=== PATIENT | male | born 1980 | race Two or more races ===

== ENCOUNTER 2020-06-12 18:04 | Emergency (ER) | payer OTHER ==
[~2020-06-12] VITALS: Ht 177.8 cm; Wt 80.7 kg
[2020-06-12 18:16] VITALS: BP 136/86
[2020-06-12] MEDS ORDERED: IBUPROFEN 800 MG TAB PO ONE (19:00)
[2020-06-12] MEDS ORDERED: CLINDAMYCIN HCL 150 MG CAP PO ONE (19:00)
== END 2020-06-12 19:57 | disposition home or self-care (01) ==
LOC: ER 18:04
DX: K04.7 Periapical abscess without sinus (principal); K03.81 Cracked tooth; H66.91 Otitis media, unspecified, right ear

== ENCOUNTER 2020-06-26 19:24 | Emergency (ER) | payer OTHER ==
[~2020-06-26] VITALS: Ht 177.8 cm; Wt 80.7 kg
[2020-06-26 19:51] VITALS: BP 117/73
[2020-06-26] MEDS ORDERED: cefTRIAXone SOD 1,000 MG VL IM ONE (21:45)
== END 2020-06-26 22:23 | disposition home or self-care (01) ==
LOC: ER 19:24
DX: S02.5XXB Fracture of tooth (traumatic), initial encounter for open fracture (principal); H66.91 Otitis media, unspecified, right ear; M48.02 Spinal stenosis, cervical region; F12.10 Cannabis abuse, uncomplicated; Z71.51 Drug abuse counseling and surveillance of drug abuser; X58.XXXA Exposure to other specified factors, initial encounter; Y93.89 Activity, other specified; Y92.89 Other specified places as the place of occurrence of the external cause; Y99.8 Other external cause status
CPT/HCPCS: 70450; 70486; 72125; 96372; 99285; J0696

== ENCOUNTER 2020-06-30 05:05 | Inpatient (IN) | payer OTHER ==
[~2020-06-30] VITALS: Ht 172.7 cm; Wt 75.7 kg
[2020-06-30] MEDS ORDERED: KETOROLAC TROMETH 60MG/2ML VIAL IM ONE (05:30)
[2020-06-30] MEDS ORDERED: SODIUM CHLORIDE 0.9% 1,000 ML IV ONE (08:00)
[2020-06-30 08:43] LABS: Red Blood Cells 2.57 10^6/uL (4.5-5.90)
[2020-06-30 08:46] LABS: Hematocrit 23.2 % (41.0-53.0); Mean Corpuscular Hemoglobin 27.2 pg (28.0-32.0); Mean Corpuscular Hgb Conc. 30.1 g/dL (32.0-36.0); Mean Corpuscular Volume 90.3 fL (80.0-100.0); Platelet Count (auto) 184 10^3/uL (140-450); Red Cell Distribution Width 19.6 % (11.8-14.3)
[2020-06-30 08:53] LABS: Albumin 3.6 g/dL (3.4-5.0); BUN/Creatinine Ratio 8.2; Bilirubin, Total 0.4 mg/dL (0.2-1.0); CRP High Sensitivity 5.35 mg/dL (< 0.3); Calcium 9.3 mg/dL (8.5-10.1); Total Protein 7.8 g/dL (6.4-8.2)
[2020-06-30 09:12] LABS: White Blood Cell 424.4 10^3/uL (4.4-10.8)
[2020-06-30 09:16] LABS: Basophils % (manual) 0 (0.0-2.0); Metamyelocytes % 0; Myelocytes % 0; Promyelocytes % 0; Reactive Lymphocytes 0
[2020-06-30] MEDS ORDERED: POTASSIUM EFFERVESENT TAB 25 MEQ PO ONE (09:30)
[2020-06-30] MEDS ORDERED: FERROUS SULFATE 325 MG TAB PO ONE (09:30)
[2020-06-30 09:44] LABS: Band Neutrophils % (manual) 3; Blast Cells 47; Eosinophils % (manual) 2 (0-7); Lymphocytes % (manual) 14 (10.0-50.0); Monocytes % (manual) 2 (0-12)
[2020-06-30] MEDS ORDERED: LORazepam 0.5 MG TAB PO PRN (09:45)
[2020-06-30] MEDS ORDERED: ALUM & MAG HYDROX-SIMETH LIQ(MAALOX) 30 ML PO PRN (09:45)
[2020-06-30] MEDS ORDERED: ACETAMINOPHEN 325 MG TAB PO PRN (09:45)
[2020-06-30] MEDS ORDERED: DOCUSATE SOD 100 MG CAP PO PRN (09:45)
[2020-06-30] MEDS: SOD CHL 0.9%/ KCL 20MEQ 1,000 ML IV SCH ×2 (09:45→18:09)
[2020-06-30] MEDS ORDERED: LACTATED RINGER'S 1,000 ML IV ONE (09:45)
[2020-06-30] MEDS ORDERED: DOXYCYCLINE 100MG/250ML 250 ML IV ONE ×2 (09:45→10:07)
[2020-06-30] MEDS ORDERED: HYDROcodone-ACET 5/325MG TAB PO PRN (09:45)
[2020-06-30] MEDS ORDERED: MORPHINE SULF INJ 2 MG/ML SYRINGE 1ML IV PRN ×2 (09:45)
[2020-06-30] MEDS ORDERED: ONDANSETRON HCL 4 MG/2 ML VIAL IV PRN (09:45)
[2020-06-30] MEDS ORDERED: NITROGLYCERIN 0.4 MG SL TAB SL PRN (09:45)
[2020-06-30] MEDS ORDERED: methylPREDNISolone SOD SUCC 125 MG/2 ML VL IV ONE (09:45)
[2020-06-30] MEDS ORDERED: POTASSIUM CHL 20MEQ/100ML 100 ML IV ONE (09:45)
[2020-06-30 09:58] LABS: Basophils % (manual) 0 (0.0-2.0); Promyelocytes % 0; Reactive Lymphocytes 0
[2020-06-30] MEDS ORDERED: SUCRALFATE 1 GM TAB PO ONE (10:00)
[2020-06-30] MEDS ORDERED: ENOXAPARIN SOD 40 MG/0.4 ML SYRINGE SC SCH (10:00)
[2020-06-30] MEDS ORDERED: FAMOTIDINE 20 MG TAB PO SCH (10:00)
[2020-06-30] MEDS ORDERED: PANTOPRAZOLE 40 MG/10 ML VIAL INJ IV ONE ×2 (10:00→10:10)
[2020-06-30] MEDS ORDERED: POTASSIUM CHLORIDE 20 MEQ, LIDOCAINE 1% (LOCAL ANESTH.) 2 ML in SODIUM CHL 0.9% 100 ML IV ONE (10:00)
[2020-06-30 10:26] LABS: Cholesterol 74 mg/dL (< 200); HDL Cholesterol 13 mg/dL (40-59); LDL Cholesterol 36 mg/dL (< 100); Triglycerides 170 mg/dL (< 150)
[2020-06-30] MEDS ORDERED: hydrALAZINE HCL 20 MG/ML VL IV PRN (11:45)
[2020-06-30 12:27] LABS: Band Neutrophils % (manual) 13; Eosinophils % (manual) 2 (0-7); Lymphocytes % (manual) 3 (10.0-50.0); Metamyelocytes % 9; Monocytes % (manual) 1 (0-12); Myelocytes % 13; Platelet Count (auto) 181 10^3/uL (140-450)
[2020-06-30 12:28] LABS: Blast Cells 25
[2020-06-30] MEDS ORDERED: hydroxyUREA 500 MG CAP PO ONE (12:45)
[2020-06-30] MEDS ORDERED: SUCRALFATE 1 GM TAB PO SCH (17:00)
[2020-06-30 18:32] VITALS: BP 109/64
[2020-06-30] MEDS ORDERED: PANTOPRAZOLE 40 MG TAB PO SCH (22:00)
[2020-06-30] MEDS ORDERED: DOXYCYCLINE 100MG/250ML 250 ML IV SCH (22:00)
[2020-07-01] MEDS ORDERED: ALLOPURINOL 300 MG TAB PO SCH (10:00)
== END 2020-06-30 18:30 | disposition short-term general hospital (02) | DRG 690 ==
LOC: ER 05:05 → TELE 05:06
PROVIDERS: ADMIT Hospitalist; ATTEND Hospitalist
DX: C95.00 Acute leukemia of unspecified cell type not having achieved remission (principal); C92.10 Chronic myeloid leukemia, BCR/ABL-positive, not having achieved remission; E87.6 Hypokalemia; F12.10 Cannabis abuse, uncomplicated; F17.210 Nicotine dependence, cigarettes, uncomplicated; I10 Essential (primary) hypertension; K21.9 Gastro-esophageal reflux disease without esophagitis; K29.70 Gastritis, unspecified, without bleeding; E86.0 Dehydration; M54.5 Low back pain; R16.1 Splenomegaly, not elsewhere classified; Z80.1 Family history of malignant neoplasm of trachea, bronchus and lung; Z20.828 Contact with and (suspected) exposure to other viral communicable diseases; D64.9 Anemia, unspecified
CPT/HCPCS: 36415; 70450; 71045; 74176; 80053; 80061; 82728; 83036; 83605; 83615; 83690; 84484; 85007; 85027; 85060; 85379; 86141; 87040; 96365; 96366; 96367; 96368; 96372; 96375; C9113; G0378; J1885; J2001; J3490

== ENCOUNTER 2024-03-15 20:51 | Inpatient (IN) | payer MEDICAID, OTHER ==
[~2024-03-15] VITALS: Ht 175.3 cm; Wt 71.6 kg
[2024-03-15 21:39] LABS: Basophils # (auto) 0 10 ^3/uL (0-0.2); Basophils % (auto) 0.4 % (0.0-2.0); Eosinophils # (auto) 0 10 ^3/uL (0-0.8); Eosinophils % (auto) 0.1 % (0.0-7.0); Hematocrit 37.3 % (41.0-53.0); Hemoglobin 12.1 g/dL (13.5-17.5); Lymphocytes # (auto) 1.6 10 ^3/uL (0.4-5.4); Lymphocytes % (auto) 17.5 % (10.0-50.0); Mean Corpuscular Hemoglobin 28.5 pg (28.0-32.0); Mean Corpuscular Hgb Conc. 32.3 g/dL (32.0-36.0); Mean Corpuscular Volume 88.1 fL (80.0-100.0); Monocytes # (auto) 0.2 10 ^3/uL (0-1.3); Monocytes % (auto) 2.5 % (0.0-12.0); Neutrophils # (auto) 7.1 10 ^3/uL (1.6-8.6); Neutrophils % (auto) 79.5 % (37.0-80.0); Nucleated Red Blood Cells % 0.7 %; Red Blood Cells 4.24 10^6/uL (4.5-5.90); White Blood Cell 8.9 10^3/uL (4.4-10.8)
[2024-03-15 21:40] LABS: Red Cell Distribution Width 21.2 % (11.8-14.3)
[2024-03-15 21:46] LABS: Chloride 95 mmol/L (98-107); Potassium 3.7 mmol/L (3.5-5.1); Sodium 126 mmol/L (136-145)
[2024-03-15 21:47] LABS: Anion Gap 10 (5-15); Carbon Dioxide 21 mmol/L (20-30)
[2024-03-15 21:48] LABS: Calcium 8.8 mg/dL (8.5-10.1)
[2024-03-15 21:52] LABS: Glucose 251 mg/dL (74-106)
[2024-03-15 21:53] LABS: BUN/Creatinine Ratio 8.8 (10.0-20.0); Blood Urea Nitrogen 9 mg/dL (9-23)
[2024-03-15 22:27] LABS: Anisocytosis Slight; Large Platelets FEW; Platelet Estimate Decreased
[2024-03-15 22:29] LABS: Lactic Acid w/Reflex 4.5 mmol/L (0.4-2.0)
[2024-03-15 23:33] VITALS: PULSE 104; RESP 44; O2SAT 94
[2024-03-16] VITALS (11 sets, daily range): BP systolic 96–101; BP diastolic 61–69; PULSE 64–105; RESP 18–46; TEMP 97.8–98; O2SAT 94–96
[2024-03-16 00:16] LABS: Rapid Influenza A Negative (Negative)
[2024-03-16 00:18] LABS: COVID19 ANTIGEN SOFIA FIA NEGATIVE (NEGATIVE); Rapid Influenza B Positive (Negative)
[2024-03-16] MEDS: VANCOMYCIN 1GM/200ML 200 ML IV ONE (00:52)
[2024-03-16] MEDS: cefTRIAXone 1GM/50ML D5W 50 ML IV ONE (00:53)
[2024-03-16] MEDS: SODIUM CHLORIDE 0.9% 1,000 ML IV ONE (00:53)
[2024-03-16] MEDS: SODIUM CHLORIDE 0.9% 1,000 ML IV SCH (02:00)
[2024-03-16] MEDS ORDERED: ACETAMINOPHEN 325 MG TAB PO PRN (02:00)
[2024-03-16] MEDS ORDERED: IPRATROPIUM BROM 0.5 MG/2.5ML INH SOL NEB PRN (02:00)
[2024-03-16] MEDS ORDERED: HYDROcodone-ACET 5/325MG TAB PO PRN (02:00)
[2024-03-16] MEDS ORDERED: ALBUTEROL SULF 2.5 MG/0.5ML(0.5%) NEB SOLN NEB PRN (02:00)
[2024-03-16] MEDS ORDERED: DOCUSATE SOD 100 MG CAP PO PRN (02:00)
[2024-03-16] MEDS ORDERED: DEXTROSE (50%) 50ML SYRG IV PRN ×2 (02:00→16:30)
[2024-03-16] MEDS ORDERED: ONDANSETRON HCL 4 MG/2 ML VIAL IV PRN (02:00)
[2024-03-16] MEDS: methylPREDNISolone SOD SUCC 125 MG/2 ML VL IV ONE (02:56)
[2024-03-16] MEDS: AZITHROMYCIN 500MG/ 250ML 250 ML IV ONE (02:56)
[2024-03-16] MEDS ORDERED: NITROGLYCERIN 0.4 MG SL TAB SL PRN (04:15)
[2024-03-16] MEDS ORDERED: MORPHINE SULFATE INJ 2 MG/ml SYRG IV PRN (04:15)
[2024-03-16 05:34] LABS: Basophils # (auto) 0 10 ^3/uL (0-0.2); Eosinophils # (auto) 0 10 ^3/uL (0-0.8)
[2024-03-16 05:38] LABS: Alanine Aminotransferase 49 U/L (7-40); Albumin 3.1 g/dL (3.2-4.8); Alkaline Phosphatase 161 U/L (46-116); Anion Gap 11 (5-15); Aspartate Aminotransferase 92 U/L (13-40); BUN/Creatinine Ratio 13.3 (10.0-20.0); Blood Urea Nitrogen 11 mg/dL (9-23); Calcium 8.5 mg/dL (8.7-10.4); Carbon Dioxide 20 mmol/L (20-30); Chloride 95 mmol/L (98-107); Glucose 313 mg/dL (74-106); Potassium 3.5 mmol/L (3.5-5.1); Sodium 126 mmol/L (136-145)
[2024-03-16 05:39] LABS: Basophils % (auto) 0.1 % (0.0-2.0); Hematocrit 32.8 % (41.0-53.0); Lymphocytes # (auto) 1.1 10 ^3/uL (0.4-5.4); Lymphocytes % (auto) 12.1 % (10.0-50.0); Mean Corpuscular Hemoglobin 29.4 pg (28.0-32.0); Mean Corpuscular Hgb Conc. 33.5 g/dL (32.0-36.0); Mean Corpuscular Volume 87.8 fL (80.0-100.0); Monocytes # (auto) 0.1 10 ^3/uL (0-1.3); Monocytes % (auto) 0.9 % (0.0-12.0); Neutrophils # (auto) 7.8 10 ^3/uL (1.6-8.6); Neutrophils % (auto) 86.9 % (37.0-80.0); Nucleated Red Blood Cells % 0.4 %; Red Blood Cells 3.73 10^6/uL (4.5-5.90); Total Protein 7.4 g/dL (5.7-8.2); White Blood Cell 8.9 10^3/uL (4.4-10.8)
[2024-03-16 05:41] LABS: Red Cell Distribution Width 20.9 % (11.8-14.3)
[2024-03-16] MEDS: methylPREDNISolone SOD SUCC 40 MG/ML VL IV SCH ×2 (06:17→22:11)
[2024-03-16 06:40] LABS: Base Excess -0.5 mmol/L (-2.0-2.0)
[2024-03-16] MEDS: InsuLIN REG 1unit/0.01ml Soln (100units/ml) SC SCH ×3 (06:55→22:13)
[2024-03-16] MEDS: ACCU-CHEK COMFORT CURVE STRIP VI SCH ×2 (06:55→17:45)
[2024-03-16] MEDS: IOHEXOL 350 MG/ML 100ML IJ ONE (09:47)
[2024-03-16 09:49] LABS: Phosphorus 2.5 mg/dL (2.4-5.1)
[2024-03-16] MEDS ORDERED: ENOXAPARIN SOD 40 MG/0.4 ML SYRINGE SC SCH (10:00)
[2024-03-16] MEDS ORDERED: TACROLIMUS 0.5 MG CAP PO SCH (10:00)
[2024-03-16 10:24] LABS: INR 1.13 (0.9-1.15); Prothrombin Time 11.9 sec (9.3-11.8)
[2024-03-16 10:34] LABS: Magnesium 1.5 mg/dL (1.6-2.6)
[2024-03-16 10:44] LABS: Lactic Acid w/Reflex 3.8 mmol/L (0.4-2.0)
[2024-03-16] MEDS: OSELTAMIVIR 75 MG CAP PO SCH (10:54)
[2024-03-16] MEDS: LEVALBUTEROL HCL 1.25 MG/3 ML NEB NEB SCH (12:16)
[2024-03-16] MEDS: IPRATROPIUM BROM 0.5 MG/2.5ML INH SOL NEB SCH (12:17)
[2024-03-16] MEDS: SODIUM CHLORIDE 0.9% 500 ML IV ONE (12:23)
[2024-03-16 12:53] LABS: % Iron Saturation 8.6 % (20-55)
[2024-03-16 15:17] LABS: Urine Bacteria None Seen /hpf (None Seen)
[2024-03-16 15:36] LABS: Urine Blood TRACE /uL (Negative); Urine Clarity Clear (Clear); Urine Color Yellow (Yellow); Urine Protein, UAD TRACE (Negative); Urine Specific Gravity 1.044 (1.001-1.035); Urine Urobilinogen 4 mg/dL (Negative); Urine WBC <1 /hpf (0 - 3); Urine pH 6.5 (5.0-9.0)
[2024-03-16 15:42] LABS: Amphetamine Screen, Urine Neg (NEGATIVE); Barbiturate Scree,Urine Neg (NEGATIVE); Benzodiazephine Screen, Urine Neg (NEGATIVE); Cannabinoid Screen, Urine Pos (NEGATIVE); Cocaine Screen, Urine Neg (NEGATIVE); Opiate Scree,Urine Neg (NEGATIVE); Phencyclidine Screen, Urine Neg (NEGATIVE)
[2024-03-16] MEDS ORDERED: FENO145T27 PO (15:58)
[2024-03-16] MEDS ORDERED: ACYC200C22 PO (15:58)
[2024-03-16] MEDS ORDERED: POSA100T4 PO (15:58)
[2024-03-16] MEDS ORDERED: BACDST PO (15:58)
[2024-03-16] MEDS ORDERED: FLUT1SPR5 (15:58)
[2024-03-16] MEDS ORDERED: TACR0.5C3 PO (15:58)
[2024-03-16] MEDS ORDERED: URSO300C2 PO (15:58)
[2024-03-16] MEDS ORDERED: ZOFR4T PO (15:58)
[2024-03-16] MEDS ORDERED: SUMA50TA16 PO (15:58)
[2024-03-16] MEDS ORDERED: CLOB0.055 TOP (15:58)
[2024-03-16] MEDS ORDERED: BENZ100C97 PO (15:58)
[2024-03-16] MEDS ORDERED: CYCL-839 PO (15:58)
[2024-03-16] MEDS ORDERED: PROC10TA6 PO (15:58)
[2024-03-16] MEDS ORDERED: METF-370 PO (15:58)
[2024-03-16] MEDS ORDERED: TRIA0.1O TOP (15:58)
[2024-03-16] MEDS: LACTULOSE 20Gm/30ML SOLN PO ONE (16:45)
[2024-03-16 17:22] LABS: Sodium Urine < 10 mmol/L (40-220)
[2024-03-16 17:26] LABS: Protein, Urine 39.3 mg/dL (0.0-11.9); Protein, Urine 41.5 mg/dL (0.0-11.9)
[2024-03-16 17:29] LABS: Creatinine, Urine 51.14 mg/dL (30.0-125.0); Creatinine, Urine 52.39 mg/dL (30.0-125.0); Urine Protein/Creatinine Ratio 0.75
[2024-03-16] MEDS: DOXYCYCLINE 100MG/250ML 250 ML IV SCH (17:45)
[2024-03-16] MEDS: SULFAMETHOX W/TRIMETH(800/160MG) DS TAB PO ONE (17:45)
[2024-03-16 18:46] LABS: Lactic Acid w/Reflex 3.2 mmol/L (0.4-2.0)
[2024-03-16 21:13] LABS: Basophils # (auto) 0 10 ^3/uL (0-0.2); Eosinophils # (auto) 0 10 ^3/uL (0-0.8); Lymphocytes # (auto) 0.7 10 ^3/uL (0.4-5.4); Mean Corpuscular Hemoglobin 28.5 pg (28.0-32.0); White Blood Cell 13.9 10^3/uL (4.4-10.8)
[2024-03-16 21:15] LABS: Basophils % (auto) 0.1 % (0.0-2.0); Hematocrit 30.4 % (41.0-53.0); Hemoglobin 9.9 g/dL (13.5-17.5); Lymphocytes % (auto) 5.1 % (10.0-50.0); Mean Corpuscular Hgb Conc. 32.7 g/dL (32.0-36.0); Mean Corpuscular Volume 87.2 fL (80.0-100.0); Monocytes # (auto) 0.5 10 ^3/uL (0-1.3); Monocytes % (auto) 3.4 % (0.0-12.0); Neutrophils # (auto) 12.7 10 ^3/uL (1.6-8.6); Neutrophils % (auto) 91.4 % (37.0-80.0); Nucleated Red Blood Cells % 1.3 %; Red Blood Cells 3.49 10^6/uL (4.5-5.90)
[2024-03-16 21:20] LABS: Red Cell Distribution Width 20.3 % (11.8-14.3)
[2024-03-16 21:22] LABS: Alanine Aminotransferase 34 U/L (7-40); Albumin 3.1 g/dL (3.2-4.8); Alkaline Phosphatase 140 U/L (46-116); Anion Gap 8 (5-15); Aspartate Aminotransferase 69 U/L (13-40); BUN/Creatinine Ratio 14.7 (10.0-20.0); Blood Urea Nitrogen 11 mg/dL (9-23); Calcium 8.7 mg/dL (8.5-10.1); Carbon Dioxide 22 mmol/L (20-30); Chloride 101 mmol/L (98-107); Glucose 331 mg/dL (74-106); Potassium 3.4 mmol/L (3.5-5.1); Total Protein 7.2 g/dL (5.7-8.2)
[2024-03-16 21:35] LABS: Sodium 131 mmol/L (136-145)
[2024-03-16 21:46] LABS: Giant Platelets Few; Platelet Estimate Decreased
[2024-03-16 21:47] LABS: Stomatocytes Few; Target Cell FEW
[2024-03-16] MEDS ORDERED: InsuLIN REG 1unit/0.01ml Soln (100units/ml) SC SCH (22:00)
[2024-03-16] MEDS: cefTRIAXone 1GM/50ML D5W 50 ML IV SCH (22:12)
[2024-03-16] MEDS: TACROLIMUS 0.5 MG CAP PO SCH (22:13)
[2024-03-17] VITALS (16 sets, daily range): BP systolic 90–105; BP diastolic 59–68; PULSE 77–89; RESP 18–20; TEMP 97.1–98.9; O2SAT 93–98
[2024-03-17] MEDS ORDERED: AZITHROMYCIN 500MG/ 250ML 250 ML IV SCH (03:00)
[2024-03-17 06:00] LABS: Alanine Aminotransferase 36 U/L (7-40); Alkaline Phosphatase 134 U/L (46-116); Anion Gap 7 (5-15); Aspartate Aminotransferase 54 U/L (13-40); Bilirubin, Total 0.9 mg/dL (0.2-1.0); Blood Urea Nitrogen 11 mg/dL (9-23); Calcium 9.1 mg/dL (8.7-10.4); Carbon Dioxide 24 mmol/L (20-30); Chloride 104 mmol/L (98-107); Glucose 243 mg/dL (74-106); Magnesium 2.1 mg/dL (1.6-2.6); Potassium 3.5 mmol/L (3.5-5.1); Sodium 135 mmol/L (136-145); Total Protein 7.1 g/dL (5.7-8.2)
[2024-03-17 06:02] LABS: Basophils # (auto) 0 10 ^3/uL (0-0.2); Eosinophils # (auto) 0 10 ^3/uL (0-0.8); Mean Corpuscular Hemoglobin 29.1 pg (28.0-32.0); Monocytes # (auto) 0.5 10 ^3/uL (0-1.3)
[2024-03-17 06:06] LABS: Hematocrit 29.2 % (41.0-53.0); Hemoglobin 9.5 g/dL (13.5-17.5); Lymphocytes # (auto) 1.1 10 ^3/uL (0.4-5.4); Mean Corpuscular Hgb Conc. 32.6 g/dL (32.0-36.0); Mean Corpuscular Volume 89.3 fL (80.0-100.0); Monocytes % (auto) 3.9 % (0.0-12.0); Neutrophils # (auto) 11.9 10 ^3/uL (1.6-8.6); Neutrophils % (auto) 88.1 % (37.0-80.0); Nucleated Red Blood Cells % 0.9 %; Red Blood Cells 3.27 10^6/uL (4.5-5.90); White Blood Cell 13.5 10^3/uL (4.4-10.8)
[2024-03-17 06:12] LABS: Red Cell Distribution Width 20.5 % (11.8-14.3)
[2024-03-17 06:28] LABS: Phosphorus 2.3 mg/dL (2.4-5.1)
[2024-03-17 07:48] LABS: CRP High Sensitivity 13.71 mg/dL (<1.0)
[2024-03-17 08:04] LABS: Platelet Estimate Decreased
[2024-03-17 08:05] LABS: Anisocytosis Slight
[2024-03-17 09:32] LABS: Base Excess -0.3 mmol/L (-2.0-2.0)
[2024-03-17] MEDS: LACTULOSE 20Gm/30ML SOLN PO SCH (10:00)
[2024-03-17] MEDS: SULFAMETHOX W/TRIMETH(800/160MG) DS TAB PO SCH (11:05)
[2024-03-17] MEDS: POTASSIUM PHOSPHATE 22 MEQ in SODIUM CHL 0.9% 100 ML IV ONE (20:19)
[2024-03-18] VITALS (9 sets, daily range): BP systolic 95–105; BP diastolic 68–72; PULSE 61–98; RESP 16–20; TEMP 97.3–98.9; O2SAT 93–99
[2024-03-18] MEDS: MELATONIN 5 MG TAB PO ONE (01:00)
[2024-03-18 06:14] LABS: Basophils # (auto) 0 10 ^3/uL (0-0.2); Eosinophils # (auto) 0 10 ^3/uL (0-0.8)
[2024-03-18 06:16] LABS: Basophils % (auto) 0.2 % (0.0-2.0); Hematocrit 28.1 % (41.0-53.0); Hemoglobin 9.3 g/dL (13.5-17.5); Lymphocytes # (auto) 0.8 10 ^3/uL (0.4-5.4); Lymphocytes % (auto) 7.4 % (10.0-50.0); Mean Corpuscular Hemoglobin 29.7 pg (28.0-32.0); Mean Corpuscular Volume 89.9 fL (80.0-100.0); Monocytes # (auto) 0.8 10 ^3/uL (0-1.3); Monocytes % (auto) 7.4 % (0.0-12.0); Red Blood Cells 3.12 10^6/uL (4.5-5.90); White Blood Cell 10.6 10^3/uL (4.4-10.8)
[2024-03-18 06:21] LABS: Alanine Aminotransferase 32 U/L (7-40); Albumin 2.9 g/dL (3.2-4.8); Alkaline Phosphatase 125 U/L (46-116); Anion Gap 6 (5-15); Aspartate Aminotransferase 36 U/L (13-40); Blood Urea Nitrogen 16 mg/dL (9-23); Calcium 8.9 mg/dL (8.7-10.4); Carbon Dioxide 24 mmol/L (20-30); Chloride 105 mmol/L (98-107); Glucose 262 mg/dL (74-106); Potassium 3.7 mmol/L (3.5-5.1); Sodium 135 mmol/L (136-145); Total Protein 6.7 g/dL (5.7-8.2)
[2024-03-18 08:28] LABS: Anisocytosis Slight; Platelet Estimate Markedly Decreased
[2024-03-18 08:52] LABS: Base Excess 0.7 mmol/L (-2.0-2.0)
[2024-03-18] MEDS: INSULIN LANTUS (GLARGINE) 1 /0.01ml (100units/ml) SC SCH (10:00)
[2024-03-18] MEDS: levoFLOXacin 750MG 150 ML IV SCH (10:13)
[2024-03-19 08:56] LABS: Hepatitis B Surface Antigen Negative (Negative)
[2024-03-19 09:16] LABS: Hepatitis B Core IgM Negative
[2024-03-19 09:17] LABS: Hepatitis A Ab IgM Negative; Hepatitis C Antibody Negative (Negative)
[2024-03-19] MEDS ORDERED: TACROLIMUS 0.5 MG CAP PO SCH (10:00)
== END 2024-03-18 12:00 | disposition left against medical advice (07) | DRG 720 ==
LOC: ER 20:51 → TELE 03-16 04:10 → TELE-CENTR 03-16 16:10
PROVIDERS: ADMIT Internal Medicine; ATTEND Emergency Medicine
DX: A41.9 Sepsis, unspecified organism (principal); J96.01 Acute respiratory failure with hypoxia; D89.813 Graft-versus-host disease, unspecified; J10.08 Influenza due to other identified influenza virus with other specified pneumonia; D84.9 Immunodeficiency, unspecified; C95.90 Leukemia, unspecified not having achieved remission; D69.6 Thrombocytopenia, unspecified; J12.9 Viral pneumonia, unspecified; Z20.822 Contact with and (suspected) exposure to COVID-19; E11.65 Type 2 diabetes mellitus with hyperglycemia; E83.42 Hypomagnesemia; R79.89 Other specified abnormal findings of blood chemistry; F12.90 Cannabis use, unspecified, uncomplicated; Z87.891 Personal history of nicotine dependence; Z79.60 Long term (current) use of unspecified immunomodulators and immunosuppressants
CPT/HCPCS: 36415; 36600; 71045; 71046; 71275; 80048; 80053; 80061; 80074; 80307; 81001; 82043; 82140; 82306; 82570; 82607; 82746; 82805; 82962; 83036; 83540; 83550; 83605; 83615; 83690; 83735; 83880; 83930; 83935; 84100; 84156; 84300; 84443; 84484; 85025; 85379; 85610; 85730; 86141; 87040; 87070; 87081; 87086; 87205; 87278; 87426; 87804; 93306; 94640; 96365; 96366; 96367; 96375; 99291; G0378; J1815; J1956; J3490

== ENCOUNTER 2024-08-19 08:02 | Emergency (ER) | payer MEDICAID ==
[~2024-08-19] VITALS: Ht 175.3 cm; Wt 66.7 kg
[~2024-08-19 08:02] MED LIST: ACYC200C22 PO; BACDST PO; BENZ100C97 PO; CLOB0.055 TOP; CYCL-839 PO; FENO145T27 PO; FLUT1SPR5; METF-370 PO; POSA100T4 PO; PROC10TA6 PO; SUMA50TA16 PO; TACR0.5C3 PO; TRIA0.1O TOP; URSO300C2 PO; ZOFR4T PO
[2024-08-19 08:29] VITALS: BP 121/88; TEMP 98
[2024-08-19 08:35] VITALS: PULSE 90; RESP 18; O2SAT 97
[2024-08-19] MEDS ORDERED: ACYC400T16 PO ×2 (08:51)
[2024-08-19] MEDS: HYDROcodone-ACET 10/325MG TAB PO ONE (08:52)
== END 2024-08-19 08:59 | disposition home or self-care (01) ==
LOC: ER 08:02
DX: C95.91 Leukemia, unspecified, in remission (principal); B02.9 Zoster without complications; E11.9 Type 2 diabetes mellitus without complications; F15.90 Other stimulant use, unspecified, uncomplicated; Z87.891 Personal history of nicotine dependence; Z79.899 Other long term (current) drug therapy